=== PATIENT | male | born 1960 | race Asian ===

== ENCOUNTER 2018-05-24 11:42 | Emergency (ER) | payer OTHER, SELFPAY ==
[2018-05-24 11:54] VITALS: BP 156/101; PULSE 100; RESP 20; TEMP 36.4; O2SAT 96; BMI 22.7
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
--- NOTE | 2018-05-24 14:36 | PC.NURSE ---
xeroform applied to wound, tube gauze to fingers per provider. Pt tolerated dressing change
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
== END 2018-05-24 14:44 | disposition home or self-care (01) ==
PROVIDERS: Emergency Provider Nurse Practitioner Family
DX: T23.002A Burn of unspecified degree of left hand, unspecified site, initial encounter (principal); T22.00XA Burn of unspecified degree of shoulder and upper limb, except wrist and hand, unspecified site, initial encounter; T31.0 Burns involving less than 10% of body surface; X10.2XXA Contact with fats and cooking oils, initial encounter; X08.8XXA Exposure to other specified smoke, fire and flames, initial encounter; Y99.0 Civilian activity done for income or pay
CPT/HCPCS: 16020; 99282

== ENCOUNTER 2019-07-09 12:49 | Emergency (ER) | payer OTHER, SELFPAY ==
[2019-07-09 13:01] VITALS: BP 160/100; PULSE 99; RESP 16; TEMP 36.7; O2SAT 100; BMI 22.0
--- NOTE | 2019-07-09 13:05 | DI.RAD.S_ITS ---
PROCEDURE: XR RIBS RT MIN 3V W CXR 1V INDICATIONS: injured ribs lifting heavy bag TECHNIQUE: 3 views of the right ribs were acquired, along with a single view chest. COMPARISON: None. FINDINGS: Surgical changes and devices: None. Bones and chest wall: No fractures or dislocations. No suspicious bony lesions. Overlying soft tissues appear unremarkable. Lungs and pleura: No pleural effusions or pneumothorax. Lungs appear clear. Mediastinum: Mediastinal contours appear normal. Heart size is normal. IMPRESSION: No acute pulmonary process. No rib fractures. Dictated by: Justine Carter M.D. on 07/09/2019 at 13:41 Approved by: Justine Carter M.D. on 07/09/2019 at 13:41
--- NOTE | 2019-07-09 13:09 | ED.EXTPRO ---
HPI - Extremity Problem General Chief complaint: Extremity Problem,Nontraumatic Stated complaint: right sided rib pain injury x1day Time Seen by Provider: 07/09/19 13:05 Source: patient Mode of arrival: Ambulatory Limitations: no limitations History of Present Illness HPI Narrative: 58-year-old male here for evaluation of pinpoint right-sided rib pain. Patient states he was at work lifting a box and had a sudden onset of pain on that side. No problems breathing. Has never injured this in the past. Related Data Allergies Allergy/AdvReac Type Severity Reaction Status Date / Time No Known Allergies Allergy Uncoded 01/06/18 13:01 Review of Systems Constitutional Constitutional: Denies fever(s) Cardiovascular Cardiovascular: Reports chest pain and Denies dyspnea Comments: Right-sided chest wall pain Respiratory Respiratory: Denies dyspnea Gastrointestinal Gastrointestinal: Denies abdominal pain, Denies nausea and Denies vomiting Musculoskeletal Comments: Right-sided rib pain Integumentary/Breasts Skin/Breast: Denies lesions and Denies rash Neurologic Neurologic: Denies behavioral changes Psychiatric Psychiatric: Denies behavioral changes Hematologic/Lymphatic Hematologic/Lymphatic: Denies easy bleeding and Denies easy bruising Patient History Medical/Surgical History Medical History No significant past medical history (Acute) Family/Social History Social History Smoking Status: Current every day smoker alcohol intake frequency: 0-2 drinks per day Substance Use Type: does not use Exam Initial Vital Signs Initial Vital Signs: Vital Signs Temperature 98.1 F 07/09/19 13:01 Pulse Rate 99 H 07/09/19 13:01 Respiratory Rate 16 07/09/19 13:01 Blood Pressure 160/100 H 07/09/19 13:01 Pulse Oximetry 100 07/09/19 13:01 Const General: cooperative and comfortable Orientation: alert and awake HENMT Head: normal to inspection and atraumatic Chest Other: Right-sided lower rib anterior pinpoint chest wall pain. No crepitus. Skin Lesions: no lesions Rashes: no rashes Extrem General: normal to inspection and capillary refill normal Course Orders Ordered: ED Orders 07/09/19 13:05 XR ribs RT min 3V w CXR1V Stat Vital Signs Vital signs: Vital Signs - 8 hr 07/09/19 13:01 Temperature 98.1 F Pulse Rate 99 H Respiratory Rate 16 Blood Pressure 160/100 H Pulse Oximetry 100 MDM - Extremity (Nontraumatic) Imaging Data Rib x-ray: Radiologist's impression: [address] [address] XRay Report Signed Patient: Marc SarmientoMR#: [id number] : 1960Acct:[id number] Age/Sex: 58 / MDate of Service: 07/09/19 Loc: ED Accession Number: [id number] Procedure: XR ribs RT min 3V w CXR1V Ordering Provider: Hossein Nolan D.O. PROCEDURE: XR RIBS RT MIN 3V W CXR 1V INDICATIONS: injured ribs lifting heavy bag TECHNIQUE: 3 views of the right ribs were acquired, along with a single view chest. COMPARISON: None. FINDINGS: Surgical changes and devices: None. Bones and chest wall: No fractures or dislocations. No suspicious bony lesions. Overlying soft tissues appear unremarkable. Lungs and pleura: No pleural effusions or pneumothorax. Lungs appear clear. Mediastinum: Mediastinal contours appear normal. Heart size is normal. IMPRESSION: No acute pulmonary process. No rib fractures. Dictated by: Justine Carter M.D. on 07/09/2019 at 13:41 Approved by: Justine Carter M.D. on 07/09/2019 at 13:41 [facility] Narrative Medical decision making narrative: No fractures noted on the x-rays however does have pinpoint tenderness on the right. This could be intercostal muscle spasm. Lungs are clear. No respiratory distress. We discussed importance of taking big deep breath. Discussed return precautions and follow-up instructions. He expressed understanding and agreement with plan. Discharge Plan Departure Patient Disposition: Home Clinical Impression: Contusion of rib on right side Qualifiers: Encounter type: initial encounter Qualified Code(s): S20.211A - Contusion of right front wall of thorax, initial encounter Instructions: DI for Rib Contusion Activity Restrictions/Additional Instructions: There were no fractures noted on the chest x-ray. Your lung also looks well on the x-ray. You can take Tylenol and/or ibuprofen for any discomfort. Your only limited in your activity by your discomfort. Return to the emergency department for any new or worsening symptoms
--- NOTE | 2019-07-09 13:42 | PC.NURSE ---
pt was lifting 50lb bag of rice and heard crack in R ribs. pain to palp. denies SOB or CP. speaking in full sentences. splinting when coughing or laughing. requesting XR.
[2019-07-09 14:13] VITALS: BP 147/104; PULSE 90; RESP 18; O2SAT 97
== END 2019-07-09 14:14 | disposition home or self-care (01) ==
PROVIDERS: Emergency Provider Emergency Medicine
DX: S20.211A Contusion of right front wall of thorax, initial encounter (principal); X50.0XXA Overexertion from strenuous movement or load, initial encounter; Y99.0 Civilian activity done for income or pay
CPT/HCPCS: 71101; 99282; 99283